=== PATIENT | male | born 1975 | race Caucasian/White ===

== ENCOUNTER 2022-08-07 15:15 | Emergency (ER) | payer SELFPAY | END 2022-08-07 16:10 | disposition home or self-care (01) | LOC: CSHERS 15:15 | DX: K05.10 Chronic gingivitis, plaque induced (principal); K02.9 Dental caries, unspecified; I25.119 Atherosclerotic heart disease of native coronary artery with unspecified angina pectoris; E78.5 Hyperlipidemia, unspecified; I10 Essential (primary) hypertension; F17.220 Nicotine dependence, chewing tobacco, uncomplicated | CPT/HCPCS: 99283 ==

== ENCOUNTER 2023-11-15 08:19 | Observation (INO) | payer SELFPAY ==
[2023-11-15 08:47] LABS: #Eosinphils 0.1 10x3/uL (0.0-0.5); #Monocytes 0.5 10x3/uL (0.0-1.1); #Neutrophils 3.1 10x3/uL (1.5-8.4); %Basophils 0.3 % (0.0-2.0); %Eosinophils 1.1 % (0.0-6.0); %Lymphocytes 43.4 % (18.0-47.0); %Monocytes 7.2 % (0.0-10.0); %Neutrophils 47.8 % (40.0-75.0); Hematocrit 47.7 % (38.8-50.0); Hemoglobin 16.1 g/dL (13.5-17.5); Mean Corpuscular HGB CONC 33.8 g/dL (32.0-36.0); Mean Corpuscular Hemoglobin 29.6 pg (27.0-33.0); Mean Corpuscular Volume 87.7 fl (81.2-95.1); Platelet Count 227 10x3/uL (150-450); RBC Distribution Width 12.7 % (11.5-14.5); Red Blood Cell (RBC) Count 5.44 10x6/uL (4.32-5.72); White Blood Cell (WBC) Count 6.5 10x3/uL (3.5-10.5)
[2023-11-15 09:04] LABS: ALT (SGPT) 38 U/L (8-55); AST (SGOT) 23 U/L (5-34); Albumin 4.3 g/dL (3.5-5.0); Alcohol Less than 10.0 mg/dL (Less than 10); Alkaline Phosphatase 61 U/L (40-110); Anion Gap 12 mmol/L (10-20); BUN (Urea Nitrogen) 11 mg/dL (8.9-20.6); Bilirubin, Total 0.8 mg/dL (0.2-1.2); Calc. Creatinine Clearance 0 mL/min (70-130); Calcium 8.9 mg/dL (7.8-10.44); Carbon Dioxide 23 mmol/L (22-29); Chloride 107 mmol/L (98-107); Estimated GFR 110; Globulin 2.5 g/dL (2.4-3.5); Glucose 102 mg/dL (70-105); Protein, Total 6.8 g/dL (6.0-8.3); Sodium 138 mmol/L (136-145)
[2023-11-15 09:06] LABS: PTT 32.3 sec (22.0-33.0); Prothrombin Time 11.2 sec (9.5-12.1); Troponin I Less than 0.010 ng/mL (< 0.028)
[2023-11-15] MEDS ORDERED: diphenhydrAMINE 50 MG/ML VIAL ONE (09:14)
[2023-11-15] MEDS ORDERED: Metoclopramide HCl 10 MG (2 mL) VIAL ONE (09:15)
[2023-11-15] MEDS ORDERED: Aspirin Chewable 81 MG TAB ONE (11:12)
[2023-11-15 11:56] LABS: Troponin I Less than 0.010 ng/mL (< 0.028)
== END 2023-11-15 12:34 | disposition left against medical advice (07) ==
LOC: CSHERS 08:19 → CSHERHOLD 11:10
PROVIDERS: ADMIT Family Medicine; ATTEND Family Medicine
DX: R42 Dizziness and giddiness (principal); G93.40 Encephalopathy, unspecified; I10 Essential (primary) hypertension; E11.9 Type 2 diabetes mellitus without complications; F17.210 Nicotine dependence, cigarettes, uncomplicated; Z88.5 Allergy status to narcotic agent; Z53.21 Procedure and treatment not carried out due to patient leaving prior to being seen by health care provider
CPT/HCPCS: 0042T; 36416; 70450; 71045; 80053; 80307; 83735; 84484; 85025; 85610; 85730; 93005; 96361; 96374; 96375; G0378; J1200; J2765

== ENCOUNTER 2023-11-15 20:34 | Observation (INO) | payer SELFPAY ==
[2023-11-15 21:04] LABS: #Eosinphils 0.1 10x3/uL (0.0-0.5); #Monocytes 0.8 10x3/uL (0.0-1.1); #Neutrophils 3.6 10x3/uL (1.5-8.4); %Basophils 0.4 % (0.0-2.0); %Eosinophils 1.7 % (0.0-6.0); %Lymphocytes 44.5 % (18.0-47.0); %Monocytes 9.2 % (0.0-10.0); Hematocrit 46.5 % (38.8-50.0); Hemoglobin 15.5 g/dL (13.5-17.5); Mean Corpuscular HGB CONC 33.3 g/dL (32.0-36.0); Mean Corpuscular Hemoglobin 29.9 pg (27.0-33.0); Mean Corpuscular Volume 89.6 fl (81.2-95.1); Mean Platelet Volume 10.6 fl (7.4-10.4); Platelet Count 226 10x3/uL (150-450); RBC Distribution Width 12.8 % (11.5-14.5); Red Blood Cell (RBC) Count 5.19 10x6/uL (4.32-5.72); White Blood Cell (WBC) Count 8.1 10x3/uL (3.5-10.5)
[2023-11-15 21:20] LABS: ALT (SGPT) 34 U/L (8-55); AST (SGOT) 20 U/L (5-34); Albumin 4.1 g/dL (3.5-5.0); Alkaline Phosphatase 57 U/L (40-110); Anion Gap 12 mmol/L (10-20); BUN (Urea Nitrogen) 15 mg/dL (8.9-20.6); Bilirubin, Total 0.3 mg/dL (0.2-1.2); Calc. Creatinine Clearance 0 mL/min (70-130); Calcium 8.8 mg/dL (7.8-10.44); Carbon Dioxide 23 mmol/L (22-29); Chloride 110 mmol/L (98-107); Estimated GFR 109; Globulin 2.2 g/dL (2.4-3.5); Glucose 121 mg/dL (70-105); Protein, Total 6.3 g/dL (6.0-8.3); Sodium 141 mmol/L (136-145)
[2023-11-15 21:24] LABS: Troponin I Less than 0.010 ng/mL (< 0.028)
[2023-11-15] MEDS ORDERED: Aspirin Chewable 81 MG TAB ONE (22:44)
[2023-11-15] MEDS ORDERED: Guaifenesin DM 100-10/5 ML UDCUP PO PRN (23:08)
[2023-11-15] MEDS ORDERED: Calcium Carbonate 500 MG ChewTAB PO PRN (23:08)
[2023-11-15] MEDS ORDERED: Acetaminophen 325 MG TAB PO PRN (23:08)
[2023-11-15] MEDS ORDERED: Senokot S 8.6-50 MG TAB PO PRN (23:08)
[2023-11-15] MEDS ORDERED: Ondansetron PF 4 MG/2 ML Vial IVP PRN (23:08)
[2023-11-15 23:35] VITALS: BMI 40.9
[2023-11-15] MEDS ORDERED: Ketorolac Tromethamine 30 MG (1 mL) VIAL ONE (23:49)
[2023-11-15] MEDS ORDERED: Metoclopramide HCl 10 MG (2 mL) VIAL ONE (23:49)
[2023-11-15] MEDS ORDERED: diphenhydrAMINE 50 MG/ML VIAL ONE (23:49)
[2023-11-15] MEDS ORDERED: Pantoprazole 40 MG VIAL ONE (23:50)
[2023-11-16 00:05] LABS: Troponin I Less than 0.010 ng/mL (< 0.028)
[2023-11-16] MEDS: diphenhydrAMINE 50 MG/ML VIAL IVP SCH (00:05)
[2023-11-16] MEDS: Pantoprazole 40 MG VIAL IVP SCH (00:06)
[2023-11-16] MEDS: Ketorolac Tromethamine 30 MG (1 mL) VIAL IVP SCH (00:06)
[2023-11-16] MEDS: Metoclopramide HCl 10 MG (2 mL) VIAL IVP SCH (00:06)
[2023-11-16] MEDS: Sodium Chloride 0.9% 500 ML IV SCH (00:07)
[2023-11-16 04:34] LABS: Cardiac Risk 4.8 (Less than 4.5)
[2023-11-16 04:35] LABS: Troponin I Less than 0.010 ng/mL (< 0.028)
[2023-11-16] MEDS ORDERED: Aspirin Chewable 81 MG TAB ONE (10:04)
[2023-11-16] MEDS: Aspirin 81 mg Enteric Coated Tablet PO SCH (10:07)
[2023-11-16 12:54] LABS: Hemoglobin A1c 5.4 % (4.0-6.0)
[2023-11-16 18:19] VITALS: BP 155/82; TEMP 97.8
[2023-11-16] MEDS ORDERED: Enoxaparin 40 MG (0.4 mL) SYRINGE SC SCH (21:00)
[2023-11-16] MEDS ORDERED: Atorvastatin Calcium 40 MG TAB PO SCH (21:00)
== END 2023-11-16 18:19 | disposition home or self-care (01) ==
LOC: CSHERS 20:34 → CSHERHOLD 22:44 → CSHTELE 11-16 13:50
PROVIDERS: ADMIT Student in an Organized Health Care Education/Training Program; ATTEND Nurse Practitioner Family
PROC: B246ZZZ Ultrasonography of Right and Left Heart (ICD-10-PCS; principal; 2023-11-16)
DX: G45.9 Transient cerebral ischemic attack, unspecified (principal); I10 Essential (primary) hypertension; E78.5 Hyperlipidemia, unspecified; F17.210 Nicotine dependence, cigarettes, uncomplicated; R73.9 Hyperglycemia, unspecified; F41.9 Anxiety disorder, unspecified; F31.9 Bipolar disorder, unspecified; F90.0 Attention-deficit hyperactivity disorder, predominantly inattentive type; E66.01 Morbid (severe) obesity due to excess calories; Z68.41 Body mass index [BMI] 40.0-44.9, adult; Z88.5 Allergy status to narcotic agent; Z79.82 Long term (current) use of aspirin; Z86.718 Personal history of other venous thrombosis and embolism; Z86.711 Personal history of pulmonary embolism; Z90.49 Acquired absence of other specified parts of digestive tract; Z90.89 Acquired absence of other organs
CPT/HCPCS: 36415; 36416; 70450; 70551; 71045; 80061; 83036; 83735; 84443; 84484; 86140; 93005; 93306; 96374; 96375; C9113; G0378; J1200; J1885; J2765; J7030

== ENCOUNTER 2024-04-07 22:31 | Emergency (ER) | payer SELFPAY | END 2024-04-08 00:15 | disposition left against medical advice (07) | LOC: CSHERS 22:31 | DX: Z53.21 Procedure and treatment not carried out due to patient leaving prior to being seen by health care provider (principal) ==